=== PATIENT | male | born 1990 | race Caucasian/White ===

== ENCOUNTER 2017-06-08 21:39 | Emergency (ER) | payer SELFPAY ==
[~2017-06-08] VITALS: Ht 180.3 cm; Wt 90.7 kg
[2017-06-08] MEDS ORDERED: CYCLOBENZAPRINE5 M3 PO (23:31)
== END 2017-06-08 23:57 | disposition home or self-care (01) ==
LOC: ED 21:39
DX: S29.011A Strain of muscle and tendon of front wall of thorax, initial encounter (principal); F17.200 Nicotine dependence, unspecified, uncomplicated; X58.XXXA Exposure to other specified factors, initial encounter; Y93.89 Activity, other specified; Y92.89 Other specified places as the place of occurrence of the external cause; Y99.8 Other external cause status